=== PATIENT | female | born 1965 | race Caucasian/White ===

== ENCOUNTER 2018-12-12 15:03 | Emergency (ER) | payer OTHER ==
[~2018-12-12] VITALS: Ht 162.6 cm; Wt 79.4 kg
[2018-12-12 15:14] VITALS: BP 161/82
--- NOTE | 2018-12-12 16:45 | NUR ---
53 Y FEMALE BIB SELF C/O DIZZINESS ON AND OFF AND BURNING URINATION 10/10. PT STATES SHE WENT TO URGENT CARE TODAY WITH DX OF UTI, ANEMIA, HGB 8.0, REFERRED TO HERE. PT WAS NOT GIVEN ANTIBITOICS AT URGENT CARE. DENIES N/V/D. DENIES BLURRY VISION. NEURO INTACT. PUPILS THANIA. 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 GCS 15. VSS AT TRIAGE. PT AA0X4. BED IS DOWN, LOCKED, BED RAIL X 1, ERMD TO SEE PT.
--- NOTE | 2018-12-12 16:48 | NUR ---
DR RIOS AT BEDSIDE
[2018-12-12] MEDS ORDERED: NACL 0.9% 1,000 ML IV ONE (17:01)
[2018-12-12] MEDS ORDERED: KETOROLAC 30 MG/ML VIAL IVP ONE (17:05)
[2018-12-12] MEDS ORDERED: FAMOTIDINE 20 MG TAB PO ONE (17:05)
[2018-12-12] MEDS ORDERED: MORPHINE SULFATE 2 MG/ML SYR IVP ONE (17:05)
[2018-12-12] MEDS ORDERED: MECLIZINE 25 MG TAB PO ONE (17:05)
--- NOTE | 2018-12-12 17:17 | NUR ---
XRAY AT BEDSIDE.
--- NOTE | 2018-12-12 17:24 | NUR ---
PT AMB TO RESTROOM WITH STEADY GAIT
[2018-12-12 17:28] LABS: BASOPHILS # (AUTO) 0.1 K/uL (0.00-0.22); BASOPHILS % (AUTO) 0.8 % (0.0-2.0); EOSINOPHILS # (AUTO) 0.4 K/uL (0-0.4); EOSINOPHILS % (AUTO) 3.9 % (0.0-4.0); HEMOGLOBIN 8.8 g/dL (12.0-16.0); LYMPHOCYTES # (AUTO) 2.2 K/uL (2.5-16.5); LYMPHOCYTES % (AUTO) 23.7 % (20.5-51.1); MEAN CORPUSCULAR HEMOGLOBIN 16 pg (27-31); MEAN CORPUSCULAR HGB CONC 29 g/dL (33-37); MEAN CORPUSCULAR VOLUME 54.8 fL (80-94); MONOCYTES # (AUTO) 0.6 K/uL (0.8-1.0); MONOCYTES % (AUTO) 6.4 % (1.7-9.3); NEUTROPHILS % (AUTO) 65.2 % (42.2-75.2); PLATELET COUNT (AUTO) 400 K/uL (140-450); RED BLOOD CELL COUNT(AUTO) 5.47 MIL/uL (4.20-5.40); RED CELL DISTRIBUTION WIDTH 21.1 % (11.6-13.7); WHITE BLOOD COUNT (AUTO) 9.1 K/uL (4.8-10.8)
[2018-12-12] MEDS ORDERED: cefTRIAXone 1,000 MG VIAL ONE (17:31)
[2018-12-12 17:39] LABS: CARBON DIOXIDE 26.8 mmol/L (21-32); CREATININE 0.8 mg/dL (0.6-1.3); POTASSIUM 3.8 mmol/L (3.5-5.1)
[2018-12-12 17:44] LABS: AMYLASE 48 U/L (25-115); LIPASE 138 U/L (73-393)
[2018-12-12 17:51] LABS: ALBUMIN 3.9 g/dL (3.4-5.0); TOTAL BILIRUBIN 0.7 mg/dL (0.0-1.0)
[2018-12-12 17:57] LABS: APPEARANCE,URINE SL CLOUDY (CLEAR); BILIRUBIN,URINE NEGATIVE (NEGATIVE); BLOOD, URINE 1+ (NEGATIVE); COLOR,URINE YELLOW (YELLOW); LEUKOCYTE ESTERASE ,URINE 3+ (NEGATIVE); NITRITE, URINE POSITIVE (NEGATIVE); UGLUCOSE NEGATIVE (NEGATIVE)
[2018-12-12 18:10] LABS: PROTHROMBIN TIME 9.2 secs (10.8-13.4)
[2018-12-12 18:29] LABS: WBC,URINE TOO MANY TO COUNT /HPF (0-5)
--- NOTE | 2018-12-12 18:46 | NUR ---
VSS AT DISCHARGE. PT AA0X4. SITTING UPRIGHT IN BED
[2018-12-12 19:20] VITALS: BP 137/66
--- NOTE | 2018-12-12 19:20 | NUR ---
Patient discharged with v/s stable. Written and verbal after care instructions given and explained. Patient alert, oriented and verbalized understanding of instructions. Ambulatory with steady gait. All questions addressed prior to discharge. ID band removed. Patient advised to follow up with PMD. Rx of FIORICET, DAILY-JONATHAN W/ IRON, PYRIDIUM, AND LEVAQUIN given. Patient educated on indication of medication including possible reaction and side effects. Opportunity to ask questions provided and answered.
== END 2018-12-12 19:20 | disposition home or self-care (01) ==
LOC: MED 15:03
DX: R42 Dizziness and giddiness (principal); R30.0 Dysuria; R10.30 Lower abdominal pain, unspecified
CPT/HCPCS: 36415; 71045; 80053; 81001; 81025; 82150; 83690; 83880; 84484; 85025; 85610; 86886; 86900; 86901; 87086; 87186; 93005; 96365; 96366; 96375; 99284; J0696; J1885; J2270; J7030; J8597; Q0092